=== PATIENT | female | born 1940 | race Caucasian/White ===

== ENCOUNTER 2024-12-19 14:42 | Emergency (ER) | payer MEDICARE, SELFPAY ==
[2024-12-19 14:46] VITALS: BP 175/73; PULSE 77; RESP 28; TEMP 36.6; O2SAT 100; BMI 28.1
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
[2024-12-19 15:27] LABS: Bacteria 0 SEEN /hpf (None Seen); Mucous, Urine 0 SEEN /hpf (<or=2+); White Blood Cells 0 SEEN /hpf (0-5)
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
[2024-12-19 15:43] VITALS: BP 158/63; PULSE 73; RESP 18; O2SAT 98
[2024-12-19 15:58] LABS: Color, Urine Straw (Yellow); Glucose, Dipstick Normal (Normal); Ketone-Dipstick Negative (Negative); Leukocyte Esterase-Dipstick Negative /ul (Negative); Nitrite-Dipstick Negative (Negative); Occult Blood-Urine 10 /ul (Negative); Protein-Dipstick 15 mg/dl (Negative); Urine Bilirubin Dipstick Negative (Negative); Urine Clarity Clear (Clear); Urine Urobilinogen Normal (Normal)
[2024-12-19 16:00] VITALS: BP 172/78; PULSE 74; RESP 16; O2SAT 98
[2024-12-19 17:00] VITALS: BP 174/74; PULSE 78; RESP 16; O2SAT 98
[2024-12-19 17:41] LABS: Red Blood Cells-Urine 0-5 SEEN /hpf (0-5); Squamous Epithelial Cells - UA 0-5 SEEN /hpf (5-10)
[2024-12-19 17:53] VITALS: BP 164/72; PULSE 78; RESP 18; TEMP 36.6; O2SAT 97
== END 2024-12-19 17:54 | disposition home or self-care (01) ==
PROVIDERS: Emergency Provider Emergency Medicine; PCP Family Medicine; Visit Provider Emergency Medicine
DX: R41.82 Altered mental status, unspecified (principal); T14.90XA Injury, unspecified, initial encounter; I10 Essential (primary) hypertension; Y92.410 Unspecified street and highway as the place of occurrence of the external cause; E78.00 Pure hypercholesterolemia, unspecified; V43.52XA Car driver injured in collision with other type car in traffic accident, initial encounter; E03.9 Hypothyroidism, unspecified; F41.9 Anxiety disorder, unspecified
CPT/HCPCS: 81001; 99285